=== PATIENT | male | born 2000 | race Two or more races ===

== ENCOUNTER 2023-11-29 21:39 | Emergency (ER) | payer MEDICAID, OTHER ==
[~2023-11-29] VITALS: Ht 175.3 cm; Wt 63.0 kg
[2023-11-30] MEDS ORDERED: AMOX875T4 PO (02:18)
[2023-11-30] MEDS ORDERED: ACET500T58 PO (02:18)
[2023-11-30] MEDS ORDERED: BACIOIN15 TOP (02:18)
[2023-11-30 03:47] VITALS: BP 131/74; PULSE 89; RESP 18; TEMP 98.5; O2SAT 99
[2023-11-30] MEDS: TETANUS-DIPTH-ACEL PERTUSSIS 0.5ML SYR Tdap IM ONE (05:58)
[2023-11-30] MEDS: cefTRIAXone 1GM/50ML D5W 50 ML IV ONE (06:00)
[2023-11-30] MEDS: CLINDAMYCIN 600MG IV 50 ML IV ONE (06:31)
[2023-11-30] MEDS: BACITRACIN TOP OINT 1 UD PKG TOP ONE ×2 (06:54→06:55)
== END 2023-11-30 07:49 | disposition home or self-care (01) ==
LOC: EDBD 21:39 → ER 21:39
DX: T14.8XXA Other injury of unspecified body region, initial encounter (principal); F17.210 Nicotine dependence, cigarettes, uncomplicated; W54.0XXA Bitten by dog, initial encounter; Y93.01 Activity, walking, marching and hiking; Y92.89 Other specified places as the place of occurrence of the external cause; Y99.8 Other external cause status
CPT/HCPCS: 90471; 90715; 96374; 96375; 99284; J0696; J3490